=== PATIENT | male | born 1955 | race Two or more races ===

== ENCOUNTER 2020-07-30 15:46 | Inpatient (IN) | payer MEDICAID ==
[~2020-07-30] VITALS: Ht 165.1 cm; Wt 74.5 kg
[~2020-07-30 15:46] MED LIST: ASPIRIN81 MG ORAL; FUROSEMIDE20 M1 ORAL; LISINOPRIL5 MG ORAL; NITRO0.4 SL
--- NOTE | 2020-07-30 16:09 | Emergency Room Report ---
History of Present Illness General Chief Complaint: Chest Pain Source: Patient Present Illness HPI Patient is a 65-year-old male presents to the ER complaining of chest pain for 2 days. Patient states the chest pain is on both sides of his chest and radiates towards his back. He states the pressure-like pain. He denies any fever or chills. He denies any focal weakness. Denies any nausea or vomiting. He denies any shortness of breath. He denies any tearing sensation in his chest. He denies any recent travel. He denies any smoking. He states that he has had heart disease in the past and has a pacemaker in place. He denies any cough. He denies any abdominal pain. Allergies: Coded Allergies: No Known Allergies (Unverified , 07/25/20) COVID-19 Screening Contact w/high risk pt: No Experienced COVID-19 symptoms?: No Patient History Reviewed Nursing Documentation: PMH: Agreed; PSxH: Agreed Nursing Documentation-PMH Hx Cardiac Problems: Yes Hx Hypertension: Yes Hx Pacemaker: Yes Hx Diabetes: Yes Hx Cancer: No Hx Neurological Problems: Yes Hx Cerebrovascular Accident: Yes Hx Weakness: Yes Review of Systems All Other Systems: negative except mentioned in HPI Physical Exam Sp02 EP Interpretation: reviewed, normal General Appearance: no apparent distress, alert, GCS 15, non-toxic Head: normocephalic, atraumatic Eyes: bilateral eye normal inspection, bilateral eye PERRL ENT: hearing grossly normal, normal pharynx, no angioedema, normal voice Neck: full range of motion, supple/symm/no masses Respiratory: chest non-tender, lungs clear, normal breath sounds, speaking full sentences, other - Left anterior chest wall palpable pacemaker Cardiovascular #1: regular rate, rhythm Gastrointestinal: non tender, soft, no guarding, no rebound Rectal: deferred Genitourinary: no CVA tenderness Musculoskeletal: normal range of motion, no calf tenderness 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 Patient had been admitted. His pacemaker and defibrillator were interrogated and he had nonsustained V. tach. Patient was seen by [facility] and was awaiting his stress test. On July 28 patient signed out AMA prior to the completion of his inpatient work-up. Patient's troponin is negative x1. Patient given sublingual nitroglycerin which helped his chest pressure. Chest x-ray demonstrates no widened mediastinum and patient has 2+ radial pulses which are equal. He also has 2+ DP pulses which are equal. Patient given oral aspirin. Patient's d-dimer is mildly elevated at 1.2 but is not tachycardic, hypotensive or hypoxic. I have ordered for a VQ scan which is pending at the time of admission and can be followed up on by the admitting physician. Patient to be admitted for further treatment and evalu ation Laboratory Tests Test 07/30/20 16:00 White Blood Count 8.1 K/UL (4.8-10.8) Red Blood Count 4.11 M/UL (4.70-6.10) L Hemoglobin 11.9 G/DL (14.2-18.0) L Hematocrit 38.6 % (42.0-52.0) L Mean Corpuscular Volume 94 FL (80-99) Mean Corpuscular Hemoglobin 28.9 PG (27.0-31.0) Mean Corpuscular Hemoglobin Concent 30.9 G/DL (32.0-36.0) L Red Cell Distribution Width 16.2 % (11.6-14.8) H Platelet Count 216 K/UL (150-450) Mean Platelet Volume 6.3 FL (6.5-10.1) L Neutrophils (%) (Auto) 71.4 % (45.0-75.0) Lymphocytes (%) (Auto) 17.4 % (20.0-45.0) L Monocytes (%) (Auto) 7.6 % (1.0-10.0) Eosinophils (%) (Auto) 3.1 % (0.0-3.0) H Basophils (%) (Auto) 0.6 % (0.0-2.0) Prothrombin Time 11.1 SEC (9.30-11.50) Prothrombin Time INR 1.0 (0.9-1.1) Activated Partial Thromboplast Time 25 SEC (23-33) D-Dimer 1.13 mg/L FEU (0.00-0.49) H Sodium Level 144 MMOL/L (136-145) Potassium Level 4.0 MMOL/L (3.5-5.1) Chloride Level 105 MMOL/L (98-107) Carbon Dioxide Level 29 MMOL/L (21-32) Anion Gap 11 mmol/L (5-15) Blood Urea Nitrogen 22 mg/dL (7-18) H Creatinine 1.3 MG/DL (0.55-1.30) Estimated Glomerular Filtration Rate 55.6 mL/min (>60) Glucose Level 101 MG/DL (74-106) Calcium Level 8.8 MG/DL (8.5-10.1) Total Bilirubin 0.8 MG/DL (0.2-1.0) Aspartate Amino Transferase (AST) 19 U/L (15-37) Alanine Aminotransferase (ALT) 20 U/L (12-78) Alkaline Phosphatase 89 U/L (46-116) Troponin I 0.000 ng/mL (0.000-0.056) Pro-B-Type Natriuretic Peptide 204 pg/mL (0-125) H Total Protein 8.6 G/DL (6.4-8.2) H Albumin 4.0 G/DL (3.4-5.0) Globulin 4.6 g/dL Albumin/Globulin Ratio 0.9 (1.0-2.7) L Lipase 76 U/L (73-393) Microbiology Date/Time Source Procedure Growth Status 07/30/20 16:30 Nasopharynx SARS-CoV-2 RdRp Gene Assay - Final Complete EKG Diagnostic Results EKG Time: 16:00 EP Interpretation: Sonia Bass MD Rate: normal Rhythm: NSR ST Segments: no acute changes Other Impression LAFB and PVC's ASA given to the pt in ED: Yes Rhythm Strip Diag. Results Rhythm Strip Time: 16:13 EP Interpretation: yes - Sonia Bass MD Rate: 77 bpm Rhythm: NSR, no PVC's, no ectopy Chest X-Ray Diagnostic Results Chest X-Ray Diagnostic Results : Chest X-Ray Ordered: Yes # of Views/Limited/Complete: 1 View Indication: Chest Pain EP Interpretation: Yes Interpretation: no consolidation, no effusion, no pneumothorax, no acute cardiopulmonary disease Impression: No acute disease Electronically Signed by: Sonia Bass MD Disposition: ADMITTED INPATIENT - Telemetry Condition: Critical Physician Consult: Dr. Barba at 1725 Additional Instructions: Please note that this report is being documented using SCHEDit technology. This can lead to erroneous entry secondary to incorrect interpretation by the dictating instrument. Sonia Bass M.D. Jul 30, 2020 16:09
[2020-07-30] MEDS ORDERED: Aspirin Baby 81mg ORAL ONE (16:15)
[2020-07-30 16:20] VITALS: BP 134/70
[2020-07-30] MEDS: Nitroglycerin Subl 0.4mg tab SL PRN ×3 (16:26→16:40)
[2020-07-30 16:53] LABS: BASOPHILS % (AUTO) 0.6 % (0.0-2.0); EOSINOPHILS % (AUTO) 3.1 % (0.0-3.0); HEMATOCRIT 38.6 % (42.0-52.0); HEMOGLOBIN 11.9 G/DL (14.2-18.0); LYMPHOCYTES % (AUTO) 17.4 % (20.0-45.0); MEAN CORPUSCULAR VOLUME 94 FL (80-99); MONOCYTES % (AUTO) 7.6 % (1.0-10.0); NEUTROPHILS % (AUTO) 71.4 % (45.0-75.0); PLATELET COUNT 216 K/UL (150-450); RED BLOOD COUNT 4.11 M/UL (4.70-6.10); RED CELL DISTRIBUTION WIDTH 16.2 % (11.6-14.8); WHITE BLOOD COUNT 8.1 K/UL (4.8-10.8)
[2020-07-30] MEDS ORDERED: NORCO 5-325 TA1 EAC1 ORAL (16:58)
[2020-07-30] MEDS ORDERED: MULTIVITAMINS1 EAC8 ORAL (16:58)
[2020-07-30] MEDS ORDERED: LABETALOL HCL100 MG ORAL (16:58)
[2020-07-30] MEDS ORDERED: LANTUS SOL100 UNIT/1 SUBQ (16:58)
[2020-07-30] MEDS ORDERED: ATORVASTATIN CA20 MG ORAL (16:58)
[2020-07-30] MEDS ORDERED: METFORMIN HCL500 M1 ORAL (16:58)
[2020-07-30 17:15] LABS: CALCIUM 8.8 MG/DL (8.5-10.1); CREATININE 1.3 MG/DL (0.55-1.30)
[2020-07-30 17:29] LABS: ALBUMIN/GLOBULIN RATIO 0.9 (1.0-2.7); BILIRUBIN,TOTAL 0.8 MG/DL (0.2-1.0)
[2020-07-30 20:00] VITALS: BP 105/48
[2020-07-30] MEDS ORDERED: Nitroglycerin Subl 0.4mg tab SL PRN (21:30)
[2020-07-30] MEDS ORDERED: HYDROcodone/Acetamin 5/325 tab ORAL PRN (21:30)
[2020-07-31] VITALS: BP 139/65
[2020-07-31 04:00] VITALS: BP 119/54
[2020-07-31 05:28] LABS: BASOPHILS % (AUTO) 1.3 % (0.0-2.0); EOSINOPHILS % (AUTO) 3.8 % (0.0-3.0); HEMATOCRIT 37.2 % (42.0-52.0); HEMOGLOBIN 11.8 G/DL (14.2-18.0); LYMPHOCYTES % (AUTO) 20.7 % (20.0-45.0); MEAN CORPUSCULAR VOLUME 90 FL (80-99); MONOCYTES % (AUTO) 9.7 % (1.0-10.0); NEUTROPHILS % (AUTO) 64.5 % (45.0-75.0); PLATELET COUNT 198 K/UL (150-450); RED BLOOD COUNT 4.13 M/UL (4.70-6.10); RED CELL DISTRIBUTION WIDTH 15.2 % (11.6-14.8); WHITE BLOOD COUNT 5.9 K/UL (4.8-10.8)
[2020-07-31 05:43] LABS: ALANINE AMINOTRANSFERASE 19 U/L (12-78); ALBUMIN 3.6 G/DL (3.4-5.0); ALBUMIN/GLOBULIN RATIO 0.8 (1.0-2.7); ALKALINE PHOSPHATASE 83 U/L (46-116); ANION GAP 9 mmol/L (5-15); ASPARTATE AMINO TRANSFERASE 17 U/L (15-37); BILIRUBIN,TOTAL 0.6 MG/DL (0.2-1.0); BLOOD UREA NITROGEN 21 mg/dL (7-18); CALCIUM 8.2 MG/DL (8.5-10.1); CARBON DIOXIDE 27 MMOL/L (21-32); CHLORIDE 107 MMOL/L (98-107); POTASSIUM 4.1 MMOL/L (3.5-5.1); SODIUM 143 MMOL/L (136-145)
[2020-07-31 08:00] VITALS: BP 126/60
[2020-07-31] MEDS: Heparin 5000 units/ml inj SUBQ SCH ×2 (08:25→20:26)
--- NOTE | 2020-07-31 08:37 | History and Physical ---
Dueñas Adrianne MOTOR ASSEMBLY SUPERVISOR 07/31/20 0837: History of Present Illness General Date patient seen: Jul 31, 2020 Time patient seen: 07:45 Reason for Hospitalization: Chest Pain Present Illness HPI 65 years old male with past medical history of coronary artery disease, status post TN, AICD, CHF, hypertension, diabetes mellitus, was recently admitted to [facility] and signed AGAINST MEDICAL ADVICE just before having a stress test , claiming that he had an important appointment. He came back to emergency department complaining of chest pain for 2days, radiating towards his back and described as pressure-like. He denied fever and chills He denied focal weakness He denied shortness of breath . Laboratory work revealed no leukocytosis , mild anemia with hemoglobin 11.9, hematocrit 38.6 . Troponin negative x2, pro BNP 204 . EKG revealed sinus rhythm no acute ischemic changes. Stable electrolytes . BUN 22, creatinine 1.3 . Glucose 101 . Stable LFT . Albumin 4.0 Urine toxicology screen was negative Chest x-ray revealed no acute cardiopulmonary pathology . On previous admission AICD was interrogated and showed good functioning with battery life of 5 years. ECHO revealed EF 45% with global left ventricular wall hypokinesia. Mild to moderate mitral regurgitation. Patient admitted to telemetry floor for chest pain, possible unstable angina, anemia Allergies: Coded Allergies: No Known Allergies (Unverified , 07/25/20) COVID-19 Screening Contact w/high risk pt: No Experienced COVID-19 symptoms?: No Medication History Scheduled Amiodarone Hcl* (Pacerone*), 200 MG ORAL DAILY, (Reported) Aspirin* (Aspirin*), 81 MG ORAL DAILY, (Reported) Atorvastatin Calcium* (Lipitor*), 80 MG ORAL BEDTIME, (Reported) Carvedilol* (Carvedilol*), 3.125 MG ORAL EVERY 12 HOURS, (Reported) Clopidogrel Bisulfate* (Plavix*), 75 MG ORAL DAILY, (Reported) Furosemide* (Lasix*), Unknown Dose ORAL DAILY, (Reported) Gabapentin* (Gabapentin*), 100 MG ORAL THREE TIMES A DAY, (Reported) Isosorbide Dinitrate* (Isordil*), 10 MG ORAL Q8HR, (Reported) Lisinopril* (Lisinopril*), 10 MG ORAL DAILY, (Reported) Metoprolol Succinate* (Metoprolol Succinate*), 50 MG ORAL DAILY, (Reported) Metoprolol Succinate* (Metoprolol Succinate*), 200 MG ORAL DAILY, (Reported) Rivaroxaban (Xarelto*), 20 MG ORAL DAILY, (Reported) Spironolactone* (Aldactone*), 25 MG ORAL DAILY, (Reported) [Imdur], 30 MG PO DAILY, (Reported) Scheduled PRN Nitroglycerin 0.4MG table* (Nitroglycerin*), 0.4 MG SL .Q5MIN X 3 DOSES PRN for CHEST PAIN, (Reported) Discontinued Medications Atorvastatin Calcium* (Atorvastatin Calcium*), Unknown Dose ORAL BEDTIME, (Reported) Discontinued Reason: Prescription changed Hydrocodone Bit/Acetaminophen 5-325* ([place] 5-325 Tablet*), 1 TAB ORAL Q6H PRN for FOR PAIN, (Reported) Discontinued Reason: Pt stopped taking med Insulin Glargine (Lantus), 0 SUBQ BEDTIME, (Reported) Discontinued Reason: Pt stopped taking med Labetalol Hcl* (Normodyne*), Unknown Dose ORAL EVERY 12 HOURS, (Reported) Discontinued Reason: Pt stopped taking med Lisinopril (Lisinopril*), Unknown Dose ORAL DAILY, (Reported) Discontinued Reason: Prescription changed Metformin Hcl* (Metformin Hcl*), Unknown Dose ORAL TWICE A DAY, (Reported) Discontinued Reason: Pt stopped taking med Multivitamin With Minerals (Multivitamins With Minerals*), 1 TAB ORAL DAILY, (Reported) Discontinued Reason: Pt stopped taking med Patient History History Provided By: Patient Healthcare decision maker N Resuscitation status full code Advanced Directive on File Review of Systems Constitutional: Reports: no symptoms Respiratory: Reports: no symptoms Cardiovascular: Reports: see HPI Gastrointestinal: Reports: no symptoms Genitourinary: Reports: no symptoms Musculoskeletal: Reports: no symptoms Skin: Reports: no symptoms Psychiatric: Reports: no symptoms Neurological: Reports: no symptoms Hematologic/Lymphatic: Reports: anemia Physical Exam General Appearance: WD/WN - in NAD male , alert Lines, tubes and drains: peripheral HEENT: normocephalic, atraumatic, anicteric, mucous membranes moist, PERRL Neck: non-tender, supple Respiratory/Chest: chest wall non-tender, lungs clear, no respiratory distress, no accessory muscle use Cardiovascular/Chest: normal peripheral pulses, normal rate, regular rhythm - SR on tele , no JVD Abdomen: normal bowel sounds, non tender, soft Extremities: normal range of motion, no calf tenderness, normal capillary refill Skin Exam: normal pigmentation, warm/dry 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 grossly normal, no motor/sensory deficits, alert, oriented x 3, responsive Musculoskeletal: normal muscle bulk Last 24 Hour Vital Signs Date Time Temp Pulse Resp B/P (MAP) Pulse Ox O2 Delivery O2 Flow Rate FiO2 07/31/20 08:00 97.9 60 20 126/60 (82) 97 07/31/20 04:00 60 07/31/20 04:00 97.7 60 18 119/54 (75) 97 07/31/20 00:00 69 07/31/20 00:00 97.5 69 18 139/65 (89) 99 07/30/20 22:26 Room Air 07/30/20 21:37 56 07/30/20 21:35 98.4 65 17 110/58 99 Room Air 07/30/20 20:00 98.6 61 16 105/48 98 Room Air 07/30/20 16:40 93/59 07/30/20 16:35 128/70 07/30/20 16:26 130/60 07/30/20 16:20 98.4 76 20 134/70 100 Room Air 07/30/20 16:10 81 16 Room Air 07/30/20 16:00 98.4 81 16 130/60 (83) 98 Room Air Intake and Output 07/30/20 07/31/20 19:00 07:00 Intake Total 200 ml Balance 200 ml Intake Oral 200 ml # Voids 1 3 Laboratory Tests Test 07/30/20 16:00 07/30/20 17:05 07/30/20 22:12 07/31/20 05:15 White Blood Count 8.1 K/UL (4.8-10.8) 5.9 K/UL (4.8-10.8) Red Blood Count 4.11 M/UL (4.70-6.10) L 4.13 M/UL (4.70-6.10) L Hemoglobin 11.9 G/DL (14.2-18.0) L 11.8 G/DL (14.2-18.0) L Hematocrit 38.6 % (42.0-52.0) L 37.2 % (42.0-52.0) L Mean Corpuscular Volume 94 FL (80-99) 90 FL (80-99) Mean Corpuscular Hemoglobin 28.9 PG (27.0-31.0) 28.5 PG (27.0-31.0) Mean Corpuscular Hemoglobin Concent 30.9 G/DL (32.0-36.0) L 31.7 G/DL (32.0-36.0) L Red Cell Distribution Width 16.2 % (11.6-14.8) H 15.2 % (11.6-14.8) H Platelet Count 216 K/UL (150-450) 198 K/UL (150-450) Mean Platelet Volume 6.3 FL (6.5-10.1) L 6.6 FL (6.5-10.1) Neutrophils (%) (Auto) 71.4 % (45.0-75.0) 64.5 % (45.0-75.0) Lymphocytes (%) (Auto) 17.4 % (20.0-45.0) L 20.7 % (20.0-45.0) Monocytes (%) (Auto) 7.6 % (1.0-10.0) 9.7 % (1.0-10.0) Eosinophils (%) (Auto) 3.1 % (0.0-3.0) H 3.8 % (0.0-3.0) H Basophils (%) (Auto) 0.6 % (0.0-2.0) 1.3 % (0.0-2.0) Prothrombin Time 11.1 SEC (9.30-11.50) Prothromb Time International Ratio 1.0 (0.9-1.1) Activated Partial Thromboplast Time 25 SEC (23-33) D-Dimer 1.13 mg/L FEU (0.00-0.49) H Sodium Level 144 MMOL/L (136-145) 143 MMOL/L (136-145) Potassium Level 4.0 MMOL/L (3.5-5.1) 4.1 MMOL/L (3.5-5.1) Chloride Level 105 MMOL/L (98-107) 107 MMOL/L (98-107) Carbon Dioxide Level 29 MMOL/L (21-32) 27 MMOL/L (21-32) Anion Gap 11 mmol/L (5-15) 9 mmol/L (5-15) Blood Urea Nitrogen 22 mg/dL (7-18) H 21 mg/dL (7-18) H Creatinine 1.3 MG/DL (0.55-1.30) 1.0 MG/DL (0.55-1.30) Estimat Glomerular Filtration Rate 55.6 mL/min (>60) > 60 mL/min (>60) Glucose Level 101 MG/DL (74-106) 96 MG/DL (74-106) Calcium Level 8.8 MG/DL (8.5-10.1) 8.2 MG/DL (8.5-10.1) L Total Bilirubin 0.8 MG/DL (0.2-1.0) 0.6 MG/DL (0.2-1.0) Aspartate Amino Transf (AST/SGOT) 19 U/L (15-37) 17 U/L (15-37) Alanine Aminotransferase (ALT/SGPT) 20 U/L (12-78) 19 U/L (12-78) Alkaline Phosphatase 89 U/L (46-116) 83 U/L (46-116) Troponin I 0.000 ng/mL (0.000-0.056) 0.000 ng/mL (0.000-0.056) Pro-B-Type Natriuretic Peptide 204 pg/mL (0-125) H Total Protein 8.6 G/DL (6.4-8.2) H 8.1 G/DL (6.4-8.2) Albumin 4.0 G/DL (3.4-5.0) 3.6 G/DL (3.4-5.0) Globulin 4.6 g/dL 4.5 g/dL Albumin/Globulin Ratio 0.9 (1.0-2.7) L 0.8 (1.0-2.7) L Lipase 76 U/L (73-393) Urine Opiates Screen Negative (NEGATIVE) Urine Barbiturates Screen Negative (NEGATIVE) Phencyclidine (PCP) Screen Negative (NEGATIVE) Urine Amphetamines Screen Negative (NEGATIVE) Urine Benzodiazepines Screen Negative (NEGATIVE) Urine Cocaine Screen Negative (NEGATIVE) Urine Marijuana (THC) Screen Negative (NEGATIVE) POC Whole Blood Glucose 86 MG/DL (74-106) Microbiology Date/Time Source Procedure Growth Status 07/30/20 16:30 Nasopharynx SARS-CoV-2 RdRp Gene Assay - Final Complete Height (Feet): 5 Height (Inches): 5.00 Weight (Pounds): 161 Medications Current Medications Medications (Trade) Dose Ordered Sig/Rk Route PRN Reason Start Time Stop Time Status Last Admin Dose Admin Acetaminophen/ Hydrocodone Bitart ([place] 5/325) 1 tab Q6H PRN ORAL FOR PAIN 07/30/20 21:30 08/06/20 21:29 Aspirin (ASA) 81 mg DAILY ORAL 07/31/20 09:00 09/14/20 08:59 07/31/20 08:24 Heparin Sodium (Porcine) (Heparin 5000 units/ml) 5,000 units EVERY 12 HOURS SUBQ 07/31/20 09:00 09/14/20 08:59 07/31/20 08:25 Nitroglycerin (Ntg) 0.4 mg Q5MIN X 3 DOSES PRN SL CHEST PAIN 07/30/20 21:30 08/29/20 21:29 Assessment/Plan Assessment/Plan: ASSESSMENT CP, possible ACS CAD with hx of TN HTN DM AICD CM with EF 45% Anemia PLAN OF CARE tele serial troponin NGT, ECG no acute ischemic changes, pt was ruled out for acute TN discussed with cardio ( Dr Sears covering for dr Rollins), will proceed with stress test, ordered nuclear stress test pt was encouraged and stay for a stress test a/PLT therapy, beta blockage NTG prn check lipid panel , on statin ECGO v EF 45% ; global left ventricular wall hypokinesia. Mild to moderate mitral regurgitation guideline directed medical therapy with BB, KATHY - resumed monitor volumes, hold Lasix for now, cardiology to access need for diuretic at this time- probably maintenance dose pt does not appeared to be in decompensation DVT prophylaxis BP management with current regimen, optimize as needed BS stable , HgA1c 6.7 on prior admission, diabetic diet AICD interrogation done last admission ->normal functioning with battery life of 5 yrs monitor HH with goal to keep Hg above 7, remains at abseline stool OB and anemia w/up supportive care case discussed and evaluated by supervising physician Serg Barba MD 07/31/202111: History of Present Illness General Reason for Hospitalization: Chest Pain Present Illness Allergies: Coded Allergies: No Known Allergies (Unverified , 07/25/20) Medication History Scheduled Amiodarone Hcl* (Pacerone*), 200 MG ORAL DAILY, (Reported) Aspirin* (Aspirin*), 81 MG ORAL DAILY, (Reported) Atorvastatin Calcium* (Lipitor*), 80 MG ORAL BEDTIME, (Reported) Carvedilol* (Carvedilol*), 3.125 MG ORAL EVERY 12 HOURS, (Reported) Clopidogrel Bisulfate* (Plavix*), 75 MG ORAL DAILY, (Reported) Furosemide* (Lasix*), Unknown Dose ORAL DAILY, (Reported) Gabapentin* (Gabapentin*), 100 MG ORAL THREE TIMES A DAY, (Reported) Isosorbide Dinitrate* (Isordil*), 10 MG ORAL Q8HR, (Reported) Lisinopril* (Lisinopril*), 10 MG ORAL DAILY, (Reported) Metoprolol Succinate* (Metoprolol Succinate*), 50 MG ORAL DAILY, (Reported) Metoprolol Succinate* (Metoprolol Succinate*), 200 MG ORAL DAILY, (Reported) Rivaroxaban (Xarelto*), 20 MG ORAL DAILY, (Reported) Spironolactone* (Aldactone*), 25 MG ORAL DAILY, (Reported) [Imdur], 30 MG PO DAILY, (Reported) Scheduled PRN Nitroglycerin 0.4MG table* (Nitroglycerin*), 0.4 MG SL .Q5MIN X 3 DOSES PRN for CHEST PAIN, (Reported) Discontinued Medications Atorvastatin Calcium* (Atorvastatin Calcium*), Unknown Dose ORAL BEDTIME, (Reported) Discontinued Reason: Prescription changed Hydrocodone Bit/Acetaminophen 5-325* ([place] 5-325 Tablet*), 1 TAB ORAL Q6H PRN for FOR PAIN, (Reported) Discontinued Reason: Pt stopped taking med Insulin Glargine (Lantus), 0 SUBQ BEDTIME, (Reported) Discontinued Reason: Pt stopped taking med Labetalol Hcl* (Normodyne*), Unknown Dose ORAL EVERY 12 HOURS, (Reported) Discontinued Reason: Pt stopped taking med Lisinopril (Lisinopril*), Unknown Dose ORAL DAILY, (Reported) Discontinued Reason: Prescription changed Metformin Hcl* (Metformin Hcl*), Unknown Dose ORAL TWICE A DAY, (Reported) Discontinued Reason: Pt stopped taking med Multivitamin With Minerals (Multivitamins With Minerals*), 1 TAB ORAL DAILY, (Reported) Discontinued Reason: Pt stopped taking med Assessment/Plan Assessment/Plan: Patient seen and examined with MOTOR ASSEMBLY SUPERVISOR and I agree with the above formulated assessment and plan. Adrianne Dueñas NP Jul 31, 2020 08:37 Serg Barba MD Jul 31, 2020 21:12
[2020-07-31] MEDS ORDERED: Aspirin Baby 81mg ORAL SCH (09:00)
[2020-07-31] MEDS ORDERED: Lisinopril 2.5mg tab ORAL SCH (09:00)
[2020-07-31] MEDS: Carvedilol 12.5mg tab ORAL SCH ×2 (09:27→20:31)
[2020-07-31 11:15] VITALS: BP 100/50
--- NOTE | 2020-07-31 13:26 | Diagnostic Imaging Report ---
Indication: Chest pain Technique: XRAY Chest 1v Comparison: 07/25/2020 Findings: Heart size and mediastinal contours are stable. Left-sided single lead pacer/ICD again noted. There is no definite focal airspace consolidation. No pleural effusion, pneumothorax or radiographic evidence of pulmonary edema. There are degenerative changes in the spine and mild scoliosis. No acute osseous abnormality. Impression: No radiographic evidence of acute cardiopulmonary disease. No significant interval change compared to exam of 07/25/2020.
--- NOTE | 2020-07-31 14:04 | Diagnostic Imaging Report ---
EXAM: NUCLEAR MEDICINE VENTILATION/PERFUSION SCAN. CLINICAL HISTORY: Chest pain. Elevated d-dimer. COMPARISON: None TECHNIQUE: Ventilation/perfusion studies performed. 44 mCi of technetium 99 DTPA is used for the ventilation portion. 5.5 mCi technetium 99 MAA was used for the perfusion portion. SPECT images are obtained in multiple planes. FINDINGS: Heterogeneous uptake identified on both ventilation and perfusion images. There is central deposition of tracer on the ventilation images. Some heterogeneity noted at the apices which are matched bilaterally. There is no signal perfusion defect or mismatch identified. Cardiac silhouette is within normal limits. There is no effusion. IMPRESSION: BY MODIFIED PIOPED CRITERIA, STUDY IS OF LOW PROBABILITY FOR PULMONARY EMBOLISM.
--- NOTE | 2020-07-31 14:10 | Consultation ---
History of Present Illness General Date patient seen: Jul 31, 2020 Chief Complaint: Chest Pain Present Illness HPI 65 years old male with past medical history of coronary artery disease, status post ID, AICD, CHF, hypertension, diabetes mellitus, was recently admitted to [facility] and signed AGAINST MEDICAL ADVICE just before having a stress test , claiming that he had an important appointment. He came back to emergency department complaining of chest pain for 2days, radiating towards his back and described as pressure-like. He denied fever and chills He denied focal weakness He denied shortness of breath . Laboratory work revealed no leukocytosis , mild anemia with hemoglobin 11.9, hematocrit 38.6 . Troponin negative x2, pro BNP 204 . EKG revealed sinus rhythm no acute ischemic changes. Stable electrolytes . BUN 22, creatinine 1.3 . Glucose 101 . Stable LFT . Albumin 4.0 Urine toxicology screen was negative Chest x-ray revealed no acute cardiopulmonary pathology . On previous admission AICD was interrogated and showed good functioning with battery life of 5 years. ECHO revealed EF 45% with global left ventricular wall hypokinesia. Mild to moderate mitral regurgitation. Patient admitted to telemetry floor for chest pain, possible unstable angina, anemia Allergies: Coded Allergies: No Known Allergies (Unverified , 07/25/20) Medication History Scheduled Aspirin* (Aspirin*), 81 MG ORAL DAILY, (Reported) Atorvastatin Calcium* (Atorvastatin Calcium*), Unknown Dose ORAL BEDTIME, (Reported) Furosemide* (Lasix*), Unknown Dose ORAL DAILY, (Reported) Insulin Glargine (Lantus), 0 SUBQ BEDTIME, (Reported) Labetalol Hcl* (Normodyne*), Unknown Dose ORAL EVERY 12 HOURS, (Reported) Lisinopril (Lisinopril*), Unknown Dose ORAL DAILY, (Reported) Metformin Hcl* (Metformin Hcl*), Unknown Dose ORAL TWICE A DAY, (Reported) Multivitamin With Minerals (Multivitamins With Minerals*), 1 TAB ORAL DAILY, (Reported) Scheduled PRN Hydrocodone Bit/Acetaminophen 5-325* (Danube 5-325 Tablet*), 1 TAB ORAL Q6H PRN for FOR PAIN, (Reported) Nitroglycerin 0.4MG table* (Nitroglycerin*), 0.4 MG SL .Q5MIN X 3 DOSES PRN for CHEST PAIN, (Reported) Patient History Healthcare decision maker N Resuscitation status Advanced Directive on File Review of Systems Constitutional: Reports: no symptoms Eye: Reports: no symptoms ENT: Reports: no symptoms Respiratory: Reports: no symptoms Cardiovascular: Reports: chest pain Gastrointestinal: Reports: no symptoms Genitourinary: Reports: no symptoms Musculoskeletal: Reports: no symptoms Skin: Reports: no symptoms Psychiatric: Reports: no symptoms Neurological: Reports: no symptoms Endocrine: Reports: no symptoms Hematologic/Lymphatic: Reports: no symptoms Physical Exam General Appearance: no apparent distress, alert Lines, tubes and drains: peripheral HEENT: normocephalic, mucous membranes moist, PERRL Neck: non-tender, normal alignment, supple, normal inspection Respiratory/Chest: chest wall non-tender, lungs clear Cardiovascular/Chest: normal peripheral pulses, normal rate, regular rhythm Abdomen: normal bowel sounds, non tender, no organomegaly, no mass Extremities: normal range of motion, non-tender, normal inspection, no calf tenderness, normal capillary refill, non-pitting Skin Exam: normal pigmentation, warm/dry, cyanotic 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, no motor/sensory deficits Last 24 Hour Vital Signs Date Time Temp Pulse Resp B/P (MAP) Pulse Ox O2 Delivery O2 Flow Rate FiO2 07/31/20 13:50 98.8 07/31/20 12:00 51 07/31/20 11:15 98.8 54 19 100/50 (67) 98 07/31/20 09:27 60 126/60 07/31/20 09:27 126/60 07/31/20 09:00 Room Air 07/31/20 08:00 97.9 60 20 126/60 (82) 97 07/31/20 08:00 59 07/31/20 04:00 60 07/31/20 04:00 97.7 60 18 119/54 (75) 97 07/31/20 00:00 69 07/31/20 00:00 97.5 69 18 139/65 (89) 99 07/30/20 22:26 Room Air 07/30/20 21:37 56 07/30/20 21:35 98.4 65 17 110/58 99 Room Air 07/30/20 20:00 98.6 61 16 105/48 98 Room Air 07/30/20 16:40 93/59 07/30/20 16:35 128/70 07/30/20 16:26 130/60 07/30/20 16:20 98.4 76 20 134/70 100 Room Air 07/30/20 16:10 81 16 Room Air 07/30/20 16:00 98.4 81 16 130/60 (83) 98 Room Air Intake and Output 07/30/20 07/31/20 19:00 07:00 Intake Total 200 ml Balance 200 ml Intake Oral 200 ml # Voids 1 3 Laboratory Tests Test 07/30/20 16:00 07/30/20 17:05 07/30/20 22:12 07/31/20 05:15 White Blood Count 8.1 K/UL (4.8-10.8) 5.9 K/UL (4.8-10.8) Red Blood Count 4.11 M/UL (4.70-6.10) L 4.13 M/UL (4.70-6.10) L Hemoglobin 11.9 G/DL (14.2-18.0) L 11.8 G/DL (14.2-18.0) L Hematocrit 38.6 % (42.0-52.0) L 37.2 % (42.0-52.0) L Mean Corpuscular Volume 94 FL (80-99) 90 FL (80-99) Mean Corpuscular Hemoglobin 28.9 PG (27.0-31.0) 28.5 PG (27.0-31.0) Mean Corpuscular Hemoglobin Concent 30.9 G/DL (32.0-36.0) L 31.7 G/DL (32.0-36.0) L Red Cell Distribution Width 16.2 % (11.6-14.8) H 15.2 % (11.6-14.8) H Platelet Count 216 K/UL (150-450) 198 K/UL (150-450) Mean Platelet Volume 6.3 FL (6.5-10.1) L 6.6 FL (6.5-10.1) Neutrophils (%) (Auto) 71.4 % (45.0-75.0) 64.5 % (45.0-75.0) Lymphocytes (%) (Auto) 17.4 % (20.0-45.0) L 20.7 % (20.0-45.0) Monocytes (%) (Auto) 7.6 % (1.0-10.0) 9.7 % (1.0-10.0) Eosinophils (%) (Auto) 3.1 % (0.0-3.0) H 3.8 % (0.0-3.0) H Basophils (%) (Auto) 0.6 % (0.0-2.0) 1.3 % (0.0-2.0) Prothrombin Time 11.1 SEC (9.30-11.50) Prothromb Time International Ratio 1.0 (0.9-1.1) Activated Partial Thromboplast Time 25 SEC (23-33) D-Dimer 1.13 mg/L FEU (0.00-0.49) H Sodium Level 144 MMOL/L (136-145) 143 MMOL/L (136-145) Potassium Level 4.0 MMOL/L (3.5-5.1) 4.1 MMOL/L (3.5-5.1) Chloride Level 105 MMOL/L (98-107) 107 MMOL/L (98-107) Carbon Dioxide Level 29 MMOL/L (21-32) 27 MMOL/L (21-32) Anion Gap 11 mmol/L (5-15) 9 mmol/L (5-15) Blood Urea Nitrogen 22 mg/dL (7-18) H 21 mg/dL (7-18) H Creatinine 1.3 MG/DL (0.55-1.30) 1.0 MG/DL (0.55-1.30) Estimat Glomerular Filtration Rate 55.6 mL/min (>60) > 60 mL/min (>60) Glucose Level 101 MG/DL (74-106) 96 MG/DL (74-106) Calcium Level 8.8 MG/DL (8.5-10.1) 8.2 MG/DL (8.5-10.1) L Total Bilirubin 0.8 MG/DL (0.2-1.0) 0.6 MG/DL (0.2-1.0) Aspartate Amino Transf (AST/SGOT) 19 U/L (15-37) 17 U/L (15-37) Alanine Aminotransferase (ALT/SGPT) 20 U/L (12-78) 19 U/L (12-78) Alkaline Phosphatase 89 U/L (46-116) 83 U/L (46-116) Troponin I 0.000 ng/mL (0.000-0.056) 0.000 ng/mL (0.000-0.056) Pro-B-Type Natriuretic Peptide 204 pg/mL (0-125) H Total Protein 8.6 G/DL (6.4-8.2) H 8.1 G/DL (6.4-8.2) Albumin 4.0 G/DL (3.4-5.0) 3.6 G/DL (3.4-5.0) Globulin 4.6 g/dL 4.5 g/dL Albumin/Globulin Ratio 0.9 (1.0-2.7) L 0.8 (1.0-2.7) L Lipase 76 U/L (73-393) Urine Opiates Screen Negative (NEGATIVE) Urine Barbiturates Screen Negative (NEGATIVE) Phencyclidine (PCP) Screen Negative (NEGATIVE) Urine Amphetamines Screen Negative (NEGATIVE) Urine Benzodiazepines Screen Negative (NEGATIVE) Urine Cocaine Screen Negative (NEGATIVE) Urine Marijuana (THC) Screen Negative (NEGATIVE) POC Whole Blood Glucose 86 MG/DL (74-106) Test 07/31/20 11:58 POC Whole Blood Glucose 94 MG/DL (74-106) Microbiology Date/Time Source Procedure Growth Status 07/30/20 16:30 Nasopharynx SARS-CoV-2 RdRp Gene Assay - Final Complete Height (Feet): 5 Height (Inches): 5.00 Weight (Pounds): 161 Medications Current Medications Medications (Trade) Dose Ordered Sig/Rk Route PRN Reason Start Time Stop Time Status Last Admin Dose Admin Acetaminophen/ Hydrocodone Bitart (Danube 5/325) 1 tab Q6H PRN ORAL FOR PAIN 07/30/20 21:30 08/06/20 21:29 07/31/20 13:20 Aspirin (ASA) 81 mg DAILY ORAL 07/31/20 09:00 09/14/20 08:59 07/31/20 08:24 Atorvastatin Calcium (Lipitor) 10 mg BEDTIME ORAL 07/31/20 21:00 10/29/20 20:59 Carvedilol (Coreg) 12.5 mg EVERY 12 HOURS ORAL 07/31/20 09:00 08/30/20 08:59 07/31/20 09:27 Heparin Sodium (Porcine) (Heparin 5000 units/ml) 5,000 units EVERY 12 HOURS SUBQ 07/31/20 09:00 09/14/20 08:59 07/31/20 08:25 Lisinopril (ZestriL) 5 mg DAILY ORAL 07/31/20 09:00 08/30/20 08:59 07/31/20 09:27 Nitroglycerin (Ntg) 0.4 mg Q5MIN X 3 DOSES PRN SL CHEST PAIN 07/30/20 21:30 08/29/20 21:29 Pantoprazole (Protonix) 40 mg DAILY ORAL 08/01/20 09:00 08/31/20 08:59 Assessment/Plan Status: stable Assessment/Plan: Assessment Elevated troponin CHF systolic Chest pain PLAN Continue current medications Stress test in Lewis Sears MD Jul 31, 2020 14:10
[2020-07-31] MEDS ORDERED: LISINOPRIL10 MG ORAL (15:09)
[2020-07-31] MEDS ORDERED: ATORVASTATIN CA80 MG ORAL (15:09)
[2020-07-31] MEDS ORDERED: METOPROLOL SUC100 MG ORAL (15:17)
[2020-07-31] MEDS ORDERED: SPIRONOLACTONE25 MG ORAL (15:17)
[2020-07-31] MEDS ORDERED: METOPROLOL SUCC50 MG ORAL (15:17)
[2020-07-31] MEDS ORDERED: PACERONE200 MG ORAL (15:17)
[2020-07-31] MEDS ORDERED: XARELTO10 MG ORAL (15:17)
[2020-07-31] MEDS ORDERED: ISOSORBIDE DINI10 MG ORAL (15:18)
[2020-07-31] MEDS ORDERED: GABAPENTIN100 MG ORAL (15:20)
[2020-07-31] MEDS ORDERED: IMDUR PO (15:20)
[2020-07-31] MEDS ORDERED: CARVEDILOL3.125 MG ORAL (15:21)
[2020-07-31] MEDS ORDERED: PLAVIX75 MG ORAL (15:21)
[2020-07-31 16:00] VITALS: BP 120/49
[2020-07-31 20:00] VITALS: BP 117/85
[2020-08-01] VITALS: BP 108/52
[2020-08-01 04:00] VITALS: BP 114/50
[2020-08-01 08:13] LABS: HEMATOCRIT 36.9 % (42.0-52.0); HEMOGLOBIN 11.8 G/DL (14.2-18.0); LYMPHOCYTES % (AUTO) 24.9 % (20.0-45.0); MEAN CORPUSCULAR VOLUME 90 FL (80-99); MONOCYTES % (AUTO) 7.5 % (1.0-10.0); NEUTROPHILS % (AUTO) 62.6 % (45.0-75.0); PLATELET COUNT 182 K/UL (150-450); RED BLOOD COUNT 4.11 M/UL (4.70-6.10); RED CELL DISTRIBUTION WIDTH 15.4 % (11.6-14.8); WHITE BLOOD COUNT 5.2 K/UL (4.8-10.8)
[2020-08-01 08:14] VITALS: BP 118/59
[2020-08-01] MEDS ORDERED: Lexiscan 0.4mg/5ml syringe IV PRN (08:15)
[2020-08-01 09:21] LABS: ANION GAP 10 mmol/L (5-15); BLOOD UREA NITROGEN 14 mg/dL (7-18); CALCIUM 8.1 MG/DL (8.5-10.1); CARBON DIOXIDE 27 MMOL/L (21-32); CHLORIDE 105 MMOL/L (98-107); CHOLESTEROL 177 MG/DL (< 200); CREATININE 0.9 MG/DL (0.55-1.30); FERRITIN 32 NG/ML (8-388); HDL CHOLESTEROL 44 MG/DL (40-60); POTASSIUM 3.5 MMOL/L (3.5-5.1); SODIUM 142 MMOL/L (136-145); TRIGLYCERIDES 64 MG/DL (30-150)
[2020-08-01 09:33] LABS: % IRON SATURATION 20 % (15-50); IRON 62 ug/dL (50-175); TOTAL IRON BINDING CAPACITY 315 ug/dL (250-450)
--- NOTE | 2020-08-01 12:32 | Cardiology Report ---
APPROVED REPORT EXAM: Two-dimensional and M-mode echocardiogram with Doppler and color Doppler. INDICATION Chest Pain M-Mode DIMENSIONS IVSd1.2 (0.7-1.1cm)Left Atrium (MM)3.5 (1.6-4.0cm) LVDd4.7 (3.5-5.6cm)Aortic Root3.1 (2.0-3.7cm) PWd1.7 (0.7-1.1cm)Aortic Cusp Exc.1.8 (1.5-2.0cm) IVSs1.4 cm LVDs4.0 (2.5-4.0cm) PWs1.8 cm <Conclusion> Technically difficult study due to poor acoustical windows. Normal left ventricular chamber size. Mild global left ventricular hypokinesis. Left ventricular ejection fraction estimated to be 35-40 %. No evidence of pericardial effusion. All other cardiac chamber sizes are within normal limits. Focal aortic valve sclerosis with adequate cusp excursion. Thickened mitral valve leaflets with normal excursion. Mitral annulus and aortic root calcification. Pulmonic valve not well visualized. Normal tricuspid valve structure. IVC measured at 2.5 cm and with slight collapsing with respiration suggestive of increased RA pressure. Pacemaker wire present in the right side chambers. A color flow and spectral Doppler study was performed and revealed: No aortic insufficiency. Mild mitral regurgitation. Mitral diastolic velocities suggest reduced left ventricular relaxation c/w mild LV diastolic dysfunction (Grade I ). Mild to moderate tricuspid regurgitation. Tricuspid systolic velocities suggests peak right ventricular systolic pressure of 28 mmHg. Trace pulmonic regurgitation present.
--- NOTE | 2020-08-04 16:23 | Discharge Summary ---
Discharge Summary Discharge Summary _ DATE OF ADMISSION: 07/30/2020 DATE OF DISCHARGE: 08/01/2020 Patient left AGAINST MEDICAL ADVICE REASON FOR ADMISSION: 65 years old male with past medical history of coronary artery disease, status post AR, AICD, CHF, hypertension, diabetes mellitus , was recently admitted to [facility] but for chest pain , but signed AGAINST MEDICAL ADVICE just before having a stress test, claiming that he had an important appointment. He came back to emergency department complaint, complaining of the chest pain for two days with radiation to the back . Chest pain was described as pressure-like. He denied all other symptoms, including no shortness of breath, no fevers, no, chills, no focal weakness. Laboratory work-up revealed no leukocytosis , showed mild anemia. Troponin was negative x2 , pro BNP 204. EKG revealed sinus rhythm, no acute ischemic changes. Stable electrolytes and LFT. Urine toxicology screen was negative. Chest x-ray revealed no acute cardiopulmonary pathology. On prior admission AICD was interrogated and showed good functioning with battery life of 5 years. Echocardiogram at that time revealed ejection fraction of 45% with global left ventricular wall hypokinesis. Mild to moderate mitral regurgitation. Patient subsequently admitted to telemetry floor for further management. 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 Serial troponin were negative . EKG revealed no acute ischemic changes. Patient was ruled out for acute AR. Desk Assistant ordered a nuclear stress test. Patient was encouraged to stay for a stress test. Antiplatelet therapy with aspirin was resumed along with beta blockage and statin. Nitroglycerin was on board as needed. Guideline directed medical therapy with beta-abel and KATHY inhibitor resumed. Volumes were closely monitored. Lasix was hold , since there was no evidence of fluid overload at this time. DVT prophylaxis provided. Blood pressure was managed with current regimen . Blood sugar was stable. Hemoglobin A1c 6.7 on prior admission . Diabetic diet and diabetic teaching provided. Hemoglobin and hematocrit were closely monitored with goal to keep hemoglobin above 7 ; remained at baseline. Stool for occult blood was negative. Anemia work-up revealed stable iron. On 08/01 just prior to nuclear stress test patient decided to leave AGAINST MEDICAL ADVICE. Patient did not provide any reason , just stated that he wanted to go home. The risks and consequences of signing AGAINST MEDICAL ADVICE were discussed with patient in detail. Patient verbalized understanding, nevertheless signed AMA form and left. FINAL DIAGNOSES: Chest pain Possible acute coronary syndrome Coronary artery disease with history of AR Hypertension Diabetes mellitus Cardiomyopathy with ejection fraction 45% AICD Mild anemia Adrianne Dueñas NP Aug 04, 2020 16:23
== END 2020-08-01 08:20 | disposition left against medical advice (07) | DRG 198 ==
LOC: EDBEDREQ 16:06 → EMR 16:21 → 2E 16:55 → EDBEDREQ 20:13
DX: I24.9 Acute ischemic heart disease, unspecified (principal); I11.0 Hypertensive heart disease with heart failure; I50.20 Unspecified systolic (congestive) heart failure; R79.89 Other specified abnormal findings of blood chemistry; I25.2 Old myocardial infarction; Z79.4 Long term (current) use of insulin; E11.9 Type 2 diabetes mellitus without complications; I42.9 Cardiomyopathy, unspecified; Z95.0 Presence of cardiac pacemaker; D64.9 Anemia, unspecified; I34.0 Nonrheumatic mitral (valve) insufficiency; Z79.02 Long term (current) use of antithrombotics/antiplatelets
CPT/HCPCS: 36415; 71045; 78579; 78580; 80048; 80053; 80061; 80307; 82270; 82607; 82728; 82746; 82962; 83540; 83550; 83690; 83880; 84484; 85025; 85379; 85610; 85730; 87081; 93005; 93306; 99285; A9503; U0002

== ENCOUNTER 2020-08-05 16:15 | Emergency (ER) | payer MEDICAID ==
[~2020-08-05] VITALS: Ht 165.1 cm; Wt 73.5 kg
[~2020-08-05 16:15] MED LIST changes: +ATORVASTATIN CA20 MG ORAL; +ATORVASTATIN CA80 MG ORAL; +CARVEDILOL3.125 MG ORAL; +GABAPENTIN100 MG ORAL; +IMDUR PO; +ISOSORBIDE DINI10 MG ORAL; +LABETALOL HCL100 MG ORAL; +LANTUS SOL100 UNIT/1 SUBQ; +LISINOPRIL10 MG ORAL; +METFORMIN HCL500 M1 ORAL; +METOPROLOL SUC100 MG ORAL; +METOPROLOL SUCC50 MG ORAL; +MULTIVITAMINS1 EAC8 ORAL; +NORCO 5-325 TA1 EAC1 ORAL; +PACERONE200 MG ORAL; +PLAVIX75 MG ORAL; +SPIRONOLACTONE25 MG ORAL; +XARELTO10 MG ORAL
[2020-08-05 16:25] VITALS: BP 133/60
--- NOTE | 2020-08-05 16:25 | NUR ---
ED Nurse Note: pt walked into ED from home d/t chest pain started yesterday morning rates 07/24, pt denies pain radiation and SOB. Pt is alert oriented x4, breathing even and unlabored, Vitals stable as documented.
--- NOTE | 2020-08-05 16:30 | NUR ---
ED Nurse Note: blood sent to lab
--- NOTE | 2020-08-05 16:50 | NUR ---
ED Nurse Note: electrical controls technician at bedside performing cxr
--- NOTE | 2020-08-05 17:03 | Diagnostic Imaging Report ---
Indication: Chest pain Technique: One view of the chest Comparison: 07/30/2020 Findings: Lungs and pleural spaces remain clear. There is a left chest unifocal AICD. The heart is upper limits normal in size. No significant interim change Impression: No acute process
--- NOTE | 2020-08-05 17:07 | Emergency Room Report ---
History of Present Illness General Chief Complaint: Chest Pain Source: Patient Present Illness HPI 65-year-old male presents the ED for evaluation. Complaining of chest pain. Started yesterday while eating breakfast. Pain was across his chest, dull, 8 out of 10, nonradiating. Denies shortness of breath. Notes history of AICD. Denies drug use. No other aggravating relieving factors. Denies any other as sociated symptoms Allergies: Coded Allergies: No Known Allergies (Unverified , 07/25/20) COVID-19 Screening Contact w/high risk pt: No Experienced COVID-19 symptoms?: No COVID-19 Testing performed BIOMATERIALS ENGINEER: No Patient History Past Medical History: DM, HTN, CVA/TIA Past Surgical History: pacemaker Pertinent Family History: none Social History: Denies: smoking, alcohol use, drug use Immunizations: UTD Reviewed Nursing Documentation: PMH: Agreed; PSxH: Agreed Nursing Documentation-PMH Hx Cardiac Problems: Yes - pacemaker Hx Hypertension: Yes Hx Pacemaker: Yes Hx Diabetes: Yes Hx Cancer: No Hx Neurological Problems: Yes Hx Cerebrovascular Accident: Yes - 2014 Hx Concentration Difficulty: No Hx Speech Problem: Yes - Occassional difficulty in getting point accross Hx Tremors: No Hx Aphasia: No Hx Dysphasia: No Hx Weakness: Yes Hx Fatigue: No Review of Systems All Other Systems: negative except mentioned in HPI Physical Exam Vital Signs Date Time Temp Pulse Resp B/P (MAP) Pulse Ox O2 Delivery O2 Flow Rate FiO2 08/05/20 16:22 99.0 68 18 122/52 (75) 100 Room Air Sp02 EP Interpretation: reviewed, normal General Appearance: no apparent distress, alert, GCS 15, non-toxic Head: normocephalic, atraumatic Eyes: bilateral eye normal inspection, bilateral eye PERRL ENT: hearing grossly normal, normal pharynx, no angioedema, normal voice Neck: full range of motion, supple/symm/no masses Respiratory: chest non-tender, lungs clear, normal breath sounds, speaking full sentences Cardiovascular #1: regular rate, rhythm, no edema Cardiovascular #2: 2+ carotid (R), 2+ carotid (L), 2+ radial (R), 2+ radial (L), 2+ dorsalis pedis (R), 2+ dorsalis pedis (L) Gastrointestinal: normal bowel sounds, non tender, soft, non-distended, no guarding, no rebound Rectal: deferred Genitourinary: normal inspection, no CVA tenderness Musculoskeletal: back normal, normal range of motion, gait/station normal, non- tender Neurologic: alert, motor strength/tone normal, oriented x3, sensory intact, responsive, speech normal Psychiatric: judgement/insight normal, memory normal, mood/affect normal, no suicidal/homicidal ideation Reflexes: 3+ bicep (R), 3+ bicep (L), 3+ tricep (R), 3+ tricep (L), 3+ knee (R), 3+ knee (L) Lymphatic: no adenopathy Medical Decision Making Diagnostic Impression: Primary Impression: Chest pain Qualified Codes: R07.9 - Chest pain, unspecified ER Course Hospital Course 65-year-old M presents ED complaining of chest pain Differential diagnoses include: Rib fracture, ME/unstable angina, contusion, muscle strain Clinical course Patient placed on stretcher. After initial history and physical I ordered labs, EKG, chest x-ray. labs reviewed- all electrolytes normal, troponins negative, no leukocytosis, hemoglobin/hematocrit stable EKG - NSR, repolarization, twave inversions Chest x-ray-no cardiomegaly, no rib fracture, no pneumothorax, no acute process, AICD noted Reviewed EMR. Patient was admitted on the for chest pain. Left AMA on the . Was admitted again on the for chest pain left AMA on the 18. Patient states he does not recall leaving AMA. But later states "I have stuff to do". I reviewed the admissions. Seen by cardiology on both visits. AICD was interrogated and noted to be unremarkable. Repeat troponins were negative. Discussed with cardiology today and he agrees that patient can be safely dis charged at this time. Discussed findings with patient. Recommend close follow-up with PMD. Patient agrees with plan I. I feel this is a highly complex case requiring extensive working including EKG/Rhythm strip, Xray/CT/US, Blood/urine lab work, repeat exams while in ED, and administration of strong opiates/narcotics for pain control, admission to hospital or close patient follow up. Diagnosis - chest pain Stable and discharged to home. Instructed to followup with PMD. Return to ED if symptoms recur or worsen Laboratory Tests Test 08/05/20 16:35 White Blood Count 5.7 K/UL (4.8-10.8) Red Blood Count 3.66 M/UL (4.70-6.10) L Hemoglobin 10.8 G/DL (14.2-18.0) L Hematocrit 33.8 % (42.0-52.0) L Mean Corpuscular Volume 92 FL (80-99) Mean Corpuscular Hemoglobin 29.4 PG (27.0-31.0) Mean Corpuscular Hemoglobin Concent 31.9 G/DL (32.0-36.0) L Red Cell Distribution Width 16.0 % (11.6-14.8) H Platelet Count 193 K/UL (150-450) Mean Platelet Volume 6.8 FL (6.5-10.1) Neutrophils (%) (Auto) 59.8 % (45.0-75.0) Lymphocytes (%) (Auto) 22.9 % (20.0-45.0) Monocytes (%) (Auto) 12.1 % (1.0-10.0) H Eosinophils (%) (Auto) 3.9 % (0.0-3.0) H Basophils (%) (Auto) 1.3 % (0.0-2.0) Sodium Level 137 MMOL/L (136-145) Potassium Level 3.7 MMOL/L (3.5-5.1) Chloride Level 105 MMOL/L (98-107) Carbon Dioxide Level 28 MMOL/L (21-32) Anion Gap 4 mmol/L (5-15) L Blood Urea Nitrogen 16 mg/dL (7-18) Creatinine 1.0 MG/DL (0.55-1.30) Estimat Glomerular Filtration Rate > 60 mL/min (>60) Glucose Level 96 MG/DL (74-106) Calcium Level 8.3 MG/DL (8.5-10.1) L Total Bilirubin 0.6 MG/DL (0.2-1.0) Aspartate Amino Transf (AST/SGOT) 13 U/L (15-37) L Alanine Aminotransferase (ALT/SGPT) 11 U/L (12-78) L Alkaline Phosphatase 84 U/L (46-116) Troponin I 0.000 ng/mL (0.000-0.056) Pro-B-Type Natriuretic Peptide 402 pg/mL (0-125) H Total Protein 6.8 G/DL (6.4-8.2) Albumin 3.6 G/DL (3.4-5.0) Globulin 3.2 g/dL Albumin/Globulin Ratio 1.1 (1.0-2.7) EKG Diagnostic Results Rate: normal Rhythm: NSR ST Segments: other - twave inversions in lateral leads ASA given to the pt in ED: No Rhythm Strip Diag. Results EP Interpretation: yes Rhythm: NSR, no PVC's, no ectopy Chest X-Ray Diagnostic Results Chest X-Ray Diagnostic Results : Chest X-Ray Ordered: Yes # of Views/Limited/Complete: 1 View Indication: Chest Pain EP Interpretation: Yes Interpretation: no consolidation, no effusion, no pneumothorax, no acute cardiopulmonary disease, other - AICD Impression: No acute disease Electronically Signed by: Electronically signed by Jack Reynolds MD Last Vital Signs Date Time Temp Pulse Resp B/P (MAP) Pulse Ox O2 Delivery O2 Flow Rate FiO2 08/05/20 16:22 99.0 68 18 122/52 (75) 100 Room Air Status: improved Disposition: HOME, SELF-CARE Condition: Stable Referrals: NON PHYSICIAN (PCP) Jack Reynolds MD Aug 05, 2020 17:07
[2020-08-05 17:30] LABS: BASOPHILS % (AUTO) 1.3 % (0.0-2.0); EOSINOPHILS % (AUTO) 3.9 % (0.0-3.0); HEMATOCRIT 33.8 % (42.0-52.0); HEMOGLOBIN 10.8 G/DL (14.2-18.0); LYMPHOCYTES % (AUTO) 22.9 % (20.0-45.0); MEAN CORPUSCULAR VOLUME 92 FL (80-99); MONOCYTES % (AUTO) 12.1 % (1.0-10.0); NEUTROPHILS % (AUTO) 59.8 % (45.0-75.0); PLATELET COUNT 193 K/UL (150-450); RED BLOOD COUNT 3.66 M/UL (4.70-6.10); WHITE BLOOD COUNT 5.7 K/UL (4.8-10.8)
[2020-08-05 17:38] LABS: ANION GAP 4 mmol/L (5-15); BLOOD UREA NITROGEN 16 mg/dL (7-18); CALCIUM 8.3 MG/DL (8.5-10.1); CARBON DIOXIDE 28 MMOL/L (21-32); CHLORIDE 105 MMOL/L (98-107); POTASSIUM 3.7 MMOL/L (3.5-5.1); SODIUM 137 MMOL/L (136-145)
[2020-08-05 17:49] LABS: ALANINE AMINOTRANSFERASE 11 U/L (12-78); ALBUMIN 3.6 G/DL (3.4-5.0); ALBUMIN/GLOBULIN RATIO 1.1 (1.0-2.7); ALKALINE PHOSPHATASE 84 U/L (46-116); ASPARTATE AMINO TRANSFERASE 13 U/L (15-37); BILIRUBIN,TOTAL 0.6 MG/DL (0.2-1.0)
[2020-08-05 18:06] VITALS: BP 128/61
--- NOTE | 2020-08-05 18:06 | NUR ---
ER DISCHARGE NOTE: Patient is cleared to be discharged per ERMD, pt is aox4, on room air, with stable vital signs. pt was given dc and prescription instructions, pt was able to verbalize understanding, pt id band and iv site removed without complications. pt is able to ambulate with steady gait. pt took all belongings.
== END 2020-08-05 18:06 | disposition home or self-care (01) ==
LOC: EMR 16:55
DX: R07.9 Chest pain, unspecified (principal); E11.9 Type 2 diabetes mellitus without complications; I10 Essential (primary) hypertension; Z86.73 Personal history of transient ischemic attack (TIA), and cerebral infarction without residual deficits; Z95.0 Presence of cardiac pacemaker; Z95.810 Presence of automatic (implantable) cardiac defibrillator
CPT/HCPCS: 36415; 71045; 80053; 83880; 84484; 85025; 93005; Z7502; 99283

== ENCOUNTER 2020-08-20 18:00 | Emergency (ER) | payer MEDICAID ==
[~2020-08-20] VITALS: Ht 165.1 cm; Wt 69.4 kg
[2020-08-20 18:15] VITALS: BP 136/67
--- NOTE | 2020-08-20 18:15 | NUR ---
ED Nurse Note: Patient from home and walked in due to CP that radiates to his back and palpitation since yesterday. States tightness and feels his heart "palpating." Pt also experiences dizziness. AAO x4, ambulatory with non labored breathing. Noted bilateral hand and leg edema.
--- NOTE | 2020-08-20 18:27 | NUR ---
ED Nurse Note: Collected blood specimen then sent.
--- NOTE | 2020-08-20 18:31 | NUR ---
ED Nurse Note: Dr Day at the bed side.
--- NOTE | 2020-08-20 18:42 | Emergency Room Report ---
History of Present Illness General Chief Complaint: Palpitations Source: Patient Present Illness HPI Disclaimer: Please note that this report is being documented using [employer] technology. This can lead to erroneous entry secondary to incorrect interpretation by the dictating instrument. HPI: This is a 65-year-old male with a history of CAD, HI status post AICD, CHF, hypertension, diabetes presenting for chest pain. The patient states he had shortness of breath and chest pain that feels like a pressure sensation wrapping around his upper sternum and constricting for the past day. Also reports feeling palpitations over his AICD site. This was recently interrogated and found to be working well with battery remaining for 5 years. Feels it constantly, not associated with exertion. Sometimes worse with bending and twisting motions. He has been seen at this hospital 3 times for chest pain in the last month, admitted twice and signed out AGAINST MEDICAL ADVICE twice prior to receiving nuclear stress test. Most recent echo showed ejection fraction 45% PMH: CHF, diabetes, CAD PSH: AICD placement Allergies: Reviewed Social Hx: Current smoker Allergies: Coded Allergies: No Known Allergies (Unverified , 07/25/20) COVID-19 Screening Contact w/high risk pt: No Experienced COVID-19 symptoms?: No COVID-19 Testing performed COOPERATIVE MANAGER: No Nursing Documentation-PMH Past Medical History: No History, Except For Hx Cardiac Problems: Yes - pacemaker Hx Hypertension: Yes Hx Pacemaker: Yes Hx Diabetes: Yes Hx Cancer: No Hx Neurological Problems: Yes Hx Cerebrovascular Accident: Yes - 2013 Hx Concentration Difficulty: No Hx Speech Problem: Yes - Occassional difficulty in getting point accross Hx Tremors: No Hx Aphasia: No Hx Dysphasia: No Hx Weakness: Yes Hx Fatigue: No Review of Systems All Other Systems: negative except mentioned in HPI Physical Exam Vital Signs Date Time Temp Pulse Resp B/P (MAP) Pulse Ox O2 Delivery O2 Flow Rate FiO2 08/20/20 18:05 98.6 68 16 136/75 (95) 97 Room Air General: Awake and alert, no acute distress HEENT: NC/AT. EOMI. Chest wall: Chest wall diffusely tender to palpation. Palpable AICD left upper chest. Cardiovascular: RRR. S1 and S2 normal. No murmur appreciated Resp: Normal work of breathing. No cough, wheezing or crackles appreciated Abdomen: Abdomen is soft, nondistended. Nontender Skin: Intact. No abrasions, laceration or rash over the exposed skin MSK: Normal tone and bulk. Moving all extremities. No obvious deformity. Neuro: Awake and alert. Mentating appropriately. Medical Decision Making Diagnostic Impression: Primary Impression: Unstable angina Additional Impression: Chest pain ER Course 65-year-old male presents for evaluation chest pain. Multiple comorbid conditions and prior HI with AICD. EKG on arrival is nonischemic though does show signs of previous coronary disease but is overall unchanged from previous EKG 08/05/2020. Troponin negative. Chest x-ray unremarkable. Patient continues to complain of palpitations and chest discomfort. Second troponin ordered. Patient given aspirin and nitroglycerin. Will reassess after second troponin for ultimate disposition. Signed out to Dr. Julien Laboratory Tests Test 08/20/20 18:15 08/20/20 19:14 White Blood Count 5.9 K/UL (4.8-10.8) Red Blood Count 3.76 M/UL (4.70-6.10) L Hemoglobin 11.0 G/DL (14.2-18.0) L Hematocrit 34.9 % (42.0-52.0) L Mean Corpuscular Volume 93 FL (80-99) Mean Corpuscular Hemoglobin 29.3 PG (27.0-31.0) Mean Corpuscular Hemoglobin Concent 31.6 G/DL (32.0-36.0) L Red Cell Distribution Width 16.5 % (11.6-14.8) H Platelet Count 186 K/UL (150-450) Mean Platelet Volume 6.0 FL (6.5-10.1) L Neutrophils (%) (Auto) 56.5 % (45.0-75.0) Lymphocytes (%) (Auto) 27.9 % (20.0-45.0) Monocytes (%) (Auto) 10.5 % (1.0-10.0) H Eosinophils (%) (Auto) 4.0 % (0.0-3.0) H Basophils (%) (Auto) 1.2 % (0.0-2.0) Sodium Level 142 MMOL/L (136-145) Potassium Level 4.0 MMOL/L (3.5-5.1) Chloride Level 106 MMOL/L (98-107) Carbon Dioxide Level 28 MMOL/L (21-32) Anion Gap 8 mmol/L (5-15) Blood Urea Nitrogen 18 mg/dL (7-18) Creatinine 1.0 MG/DL (0.55-1.30) Estimated Glomerular Filtration Rate > 60 mL/min (>60) Glucose Level 107 MG/DL (74-106) H Calcium Level 8.2 MG/DL (8.5-10.1) L Total Bilirubin 0.6 MG/DL (0.2-1.0) Aspartate Amino Transferase (AST) 18 U/L (15-37) Alanine Aminotransferase (ALT) 15 U/L (12-78) Alkaline Phosphatase 88 U/L (46-116) Troponin I 0.002 ng/mL (0.000-0.056) Pro-B-Type Natriuretic Peptide 294 pg/mL (0-125) H Total Protein 7.6 G/DL (6.4-8.2) Albumin 3.6 G/DL (3.4-5.0) Globulin 4.0 g/dL Albumin/Globulin Ratio 0.9 (1.0-2.7) L Serum Alcohol < 3 mg/dL Urine Opiates Screen Negative (NEGATIVE) Urine Barbiturates Screen Negative (NEGATIVE) Phencyclidine (PCP) Screen Negative (NEGATIVE) Urine Amphetamines Screen Negative (NEGATIVE) Urine Benzodiazepines Screen Negative (NEGATIVE) Urine Cocaine Screen Negative (NEGATIVE) Urine Marijuana (THC) Screen Negative (NEGATIVE) EKG Diagnostic Results Troponin ordered: Yes When was troponin ordered?: Aug 20, 2020 EKG Time: 18:12 Rate: normal Rhythm: NSR Other Impression Sinus rhythm excess, T wave inversions inferiorly, somewhat biphasic appearing T waves in V2 and V3. Unchanged from prior EKG on 08/05/2020 Rhythm Strip Diag. Results Rhythm Strip Time: 18:12 EP Interpretation: yes Rate: 60s Rhythm: NSR Chest X-Ray Diagnostic Results Chest X-Ray Diagnostic Results : Chest X-Ray Ordered: Yes # of Views/Limited/Complete: 1 View Indication: Chest Pain Interpretation: no consolidation, no effusion, no pneumothorax, other - AICD left upper chest Impression: No acute disease Electronically Signed by: Electronically signed by Dr. Marco Day Last Vital Signs Date Time Temp Pulse Resp B/P (MAP) Pulse Ox O2 Delivery O2 Flow Rate FiO2 08/20/20 18:15 98.6 62 18 136/67 98 Room Air Disposition: AGAINST MEDICAL ADVICE Condition: Stable Marco Day MD Aug 20, 2020 18:42
[2020-08-20 18:58] LABS: BASOPHILS % (AUTO) 1.2 % (0.0-2.0); HEMATOCRIT 34.9 % (42.0-52.0); LYMPHOCYTES % (AUTO) 27.9 % (20.0-45.0); MEAN CORPUSCULAR VOLUME 93 FL (80-99); MONOCYTES % (AUTO) 10.5 % (1.0-10.0); NEUTROPHILS % (AUTO) 56.5 % (45.0-75.0); PLATELET COUNT 186 K/UL (150-450); RED BLOOD COUNT 3.76 M/UL (4.70-6.10); RED CELL DISTRIBUTION WIDTH 16.5 % (11.6-14.8); WHITE BLOOD COUNT 5.9 K/UL (4.8-10.8)
[2020-08-20 19:00] VITALS: BP 128/78
[2020-08-20 19:11] LABS: ANION GAP 8 mmol/L (5-15); BLOOD UREA NITROGEN 18 mg/dL (7-18); CALCIUM 8.2 MG/DL (8.5-10.1); CARBON DIOXIDE 28 MMOL/L (21-32); CHLORIDE 106 MMOL/L (98-107); SODIUM 142 MMOL/L (136-145)
--- NOTE | 2020-08-20 19:12 | NUR ---
HAND-OFF: Report given to Chao RN.
--- NOTE | 2020-08-20 19:13 | NUR ---
ED Nurse Note: Report received from GAURAV Quan RN. Patient on awake on bed. Urine sent to lab
[2020-08-20 19:22] LABS: ALANINE AMINOTRANSFERASE 15 U/L (12-78); ALBUMIN 3.6 G/DL (3.4-5.0); ALBUMIN/GLOBULIN RATIO 0.9 (1.0-2.7); ALKALINE PHOSPHATASE 88 U/L (46-116); ASPARTATE AMINO TRANSFERASE 18 U/L (15-37); BILIRUBIN,TOTAL 0.6 MG/DL (0.2-1.0)
[2020-08-20 21:00] VITALS: BP 118/76
[2020-08-20] MEDS ORDERED: Nitroglycerin Subl 0.4mg tab SL PRN (21:30)
[2020-08-20] MEDS ORDERED: Aspirin Baby 81mg ORAL ONE (21:30)
--- NOTE | 2020-08-20 21:30 | NUR ---
ED Nurse Note: Oral meds given. PAtient on bed resting. VSS as documented
[2020-08-20 23:00] VITALS: BP 121/84
--- NOTE | 2020-08-20 23:00 | NUR ---
ED Nurse Note: ERMD at bedside explaining to the patient his condition.
--- NOTE | 2020-08-20 23:14 | Emergency Room Report ---
Physical Exam Vital Signs Date Time Temp Pulse Resp B/P (MAP) Pulse Ox O2 Delivery O2 Flow Rate FiO2 08/20/20 18:05 98.6 68 16 136/75 (95) 97 Room Air Medical Decision Making Diagnostic Impression: Primary Impression: Unstable angina Additional Impression: Chest pain ER Course EKG: NSR, biphasic T waves in leads V2 and V3 concerning for [facility] pattern. intervals WNL. No ectopy Rhythm strip: patient monitored for arrhythmias - no malignant dysrhythmias, runs of PVCs, nor pauses noted Patient was signed out to me by previous physician. Patient still complaining of chest pain at this time. Initial troponin was 0.002, repeat troponin several hours later was 0.012. Patient also told me that earlier today he felt to shocks from his AICD. Given the concerning nature of the patient's history, EKG pattern, rising troponin explained to the patient that it was important for him to be admitted to the hospital and that he must undergo further testing. Patient was adamant that he will not leave AGAINST MEDICAL ADVICE and "I will do whatever the doctors say is right." Patient to be admitted to telemetry. Plan was expressed to the admitting physician Dr. Barba.. Last Vital Signs Date Time Temp Pulse Resp B/P (MAP) Pulse Ox O2 Delivery O2 Flow Rate FiO2 08/20/20 18:15 98.6 62 18 136/67 98 Room Air Disposition: ADMITTED INPATIENT Condition: Serious Referrals: [facility],REFERRING (PCP) Derick Julien M.D. Aug 20, 2020 23:14
[2020-08-21 01:00] VITALS: BP 112/78
--- NOTE | 2020-08-21 01:17 | NUR ---
ED Nurse Note: Patient on bed asleep. VSS as documented
--- NOTE | 2020-08-21 01:30 | NUR ---
ED Nurse Note: paged dr. lawrence for bridging orders.
[2020-08-21 03:00] VITALS: BP 131/72
--- NOTE | 2020-08-21 04:30 | NUR ---
ED Nurse Note: paged dr. lawrence for bridging orders.
--- NOTE | 2020-08-21 04:45 | NUR ---
ED Nurse Note: received bridging orders from Dr. Barba
[2020-08-21 05:00] VITALS: BP 125/84
--- NOTE | 2020-08-21 06:00 | NUR ---
ED Nurse Note: Patient awake on bed, assisted to use urinal. VSS as documented
[2020-08-21 06:45] VITALS: BP 121/78
--- NOTE | 2020-08-21 07:10 | NUR ---
HAND-OFF: Report given to TENNILLE BRADLEY .
--- NOTE | 2020-08-21 08:00 | NUR ---
ED Nurse Note: COVID swab sent.
[2020-08-21] MEDS ORDERED: Heparin 5000 units/ml inj SUBQ SCH ×2 (09:00)
[2020-08-21 09:04] VITALS: BP 125/73
--- NOTE | 2020-08-21 10:42 | NUR ---
ED Nurse Note: payroll technician came to get pt for stress test, pt refused and pt educated about need for stress test. Dr Barba notified.
--- NOTE | 2020-08-21 10:52 | NUR ---
ED Nurse Note: spoke to dr lawrence regarding the [facility] melinda kincaid will come to see the patient as a cardiology consult
--- NOTE | 2020-08-21 11:17 | NUR ---
PATIENT DOESNOT WANT TO WAIT FOR [employer] TO COME AND SEE HIM . PATIENT PULLED THE IV OUT AND SIGNED OUT AMA. DR GIBBS HAS BEEN PAGED TO INFORM THAT PATIENT SIGNED AMA
[2020-08-21 11:25] VITALS: BP 130/90
--- NOTE | 2020-08-21 15:47 | Diagnostic Imaging Report ---
Indication: Chest pain Technique: One view of the chest Comparison: 08/05/2020 Findings: Lungs and pleural spaces are clear. The heart size is normal. Left chest AICD is again noted. No significant change Impression: No acute process
--- NOTE | 2020-08-25 06:18 | Cardiology Report ---
APPROVED REPORT EKG Measurement Heart [id number] <Conclusion> Sinus bradycardia Left axis deviation Nonspecific intraventricular conduction delay T wave abnormality, consider inferior ischemia T wave abnormality, consider anterolateral ischemia Abnormal ECG
--- NOTE | 2020-08-25 06:18 | Cardiology Report ---
APPROVED REPORT EKG Measurement Heart [id number] <Conclusion> Normal sinus rhythm Left anterior fascicular block ST & T wave abnormality, consider inferior ischemia ST & T wave abnormality, consider anterolateral ischemia Abnormal ECG
== END 2020-08-21 11:29 | disposition left against medical advice (07) ==
LOC: EMR 19:24
DX: I20.0 Unstable angina (principal); R07.9 Chest pain, unspecified; Z95.810 Presence of automatic (implantable) cardiac defibrillator; I11.0 Hypertensive heart disease with heart failure; I50.9 Heart failure, unspecified; I25.10 Atherosclerotic heart disease of native coronary artery without angina pectoris; E11.9 Type 2 diabetes mellitus without complications; Z86.73 Personal history of transient ischemic attack (TIA), and cerebral infarction without residual deficits
CPT/HCPCS: 36415; 71045; 80053; 80307; 83880; 84484; 85025; 93005; G0480; J1644; U0002; Z7502; 99284